=== PATIENT | male | born 1950 | race Two or more races ===

== ENCOUNTER 2023-12-11 11:26 | Outpatient (CLI) | payer OTHER | END 2023-12-11 11:30 | disposition home or self-care (01) | LOC: SONOGRAMA 11:26 | PROVIDERS: ATTEND Urology | DX: N20.0 Calculus of kidney (principal); N40.1 Benign prostatic hyperplasia with lower urinary tract symptoms ==

== ENCOUNTER 2024-01-17 07:49 | Outpatient (CLI) | payer OTHER | END 2024-01-17 08:06 | disposition home or self-care (01) | LOC: TOM 07:49 | DX: K57.33 Diverticulitis of large intestine without perforation or abscess with bleeding (principal) | CPT/HCPCS: 74177; Q9965 ==